=== PATIENT | male | born 1960 | race African-American/Black ===

== ENCOUNTER 2020-08-19 13:49 | Emergency (ER) | payer MEDICAID ==
[~2020-08-19] VITALS: Ht 177.8 cm; Wt 102.0 kg
[2020-08-19] MEDS ORDERED: ASPIRIN 81MG TABLET PO ONE (14:30)
[2020-08-19] MEDS ORDERED: SODIUM CHLORIDE 0.9% 1,000 ML IV ONE (14:30)
[2020-08-19 14:55] LABS: EOSINOPHILS % 6.4 % (0.0-5.0); HEMOGLOBIN. 8.9 g/dL (14.0-18.0); LYMPHOCYTES % 16.4 % (20.0-50.0); MEAN CORPUSCULAR HEMOGLOBIN 28.4 pg (28.0-32.0); MEAN CORPUSCULAR VOLUME 83.3 fL (80.0-94.0); MEAN PLATELET VOLUME 8.4 fl (7.4-10.4); NEUTROPHILS % 67.2 % (40.0-76.0); PLATELET 121 x1000/uL (130-400); RED BLOOD CELL COUNT 3.12 mill/uL (4.7-6.1); RED CELL DISTRIBUTION WIDTH 17.1 % (11.6-14.6)
[2020-08-19 15:02] LABS: CHLORIDE 102 mEq/L (98-107)
[2020-08-19 15:59] VITALS: BP 188/98
[2020-08-19] MEDS ORDERED: ACETAMINOPHEN 325MG TABLET PO PRN (16:45)
[2020-08-19] MEDS ORDERED: ONDANSETRON HCL 4MG/2ML INJ IV PRN (16:45)
[2020-08-19] MEDS ORDERED: LOSARTAN POTASSIUM 100 MG TABLET PO SCH (17:00)
[2020-08-19] MEDS ORDERED: HYDRALAZINE HCL 50MG TABLET PO SCH (21:00)
== END 2020-08-19 18:34 | disposition left against medical advice (07) ==
LOC: ER 13:58 → EDBEDREQ 15:30 → EDBEDREQTM 15:30 → EDBEDREQ 16:05 → EDBEDREQTM 16:05 → ER 18:34 → CANBEDREQ 19:49
DX: R55 Syncope and collapse (principal); R00.1 Bradycardia, unspecified; I12.0 Hypertensive chronic kidney disease with stage 5 chronic kidney disease or end stage renal disease; E11.22 Type 2 diabetes mellitus with diabetic chronic kidney disease; N18.6 End stage renal disease; Z99.2 Dependence on renal dialysis; Z79.4 Long term (current) use of insulin; R94.31 Abnormal electrocardiogram [ECG] [EKG]
CPT/HCPCS: 36415; 71045; 80053; 83735; 83880; 84443; 84484; 85025; 93005; 99285; J7030; Z7610

== ENCOUNTER 2024-05-27 10:40 | Emergency (ER) | payer MEDICAID ==
[~2024-05-27] VITALS: Ht 182.9 cm; Wt 110.0 kg
[2024-05-27 10:43] VITALS: O2SAT 96
[2024-05-27] MEDS: ACETAMINOPHEN 500MG TABLET PO ONE (11:47)
[2024-05-27] MEDS ORDERED: NAPR-1176 MT (12:02)
[2024-05-27] MEDS ORDERED: LIDO700A15 TP (12:02)
[2024-05-27] MEDS ORDERED: TOPUD MT (12:04)
[2024-05-27 12:32] VITALS: BP 152/89; PULSE 72; RESP 16; TEMP 98.1
== END 2024-05-27 12:42 | disposition home or self-care (01) ==
LOC: ER 11:06
DX: M25.562 Pain in left knee (principal); E11.9 Type 2 diabetes mellitus without complications; Z99.2 Dependence on renal dialysis; Z98.890 Other specified postprocedural states; W01.0XXA Fall on same level from slipping, tripping and stumbling without subsequent striking against object, initial encounter; Y93.01 Activity, walking, marching and hiking; Y92.89 Other specified places as the place of occurrence of the external cause; Y99.8 Other external cause status
CPT/HCPCS: 73562; 99283